=== PATIENT | male | born 1950 | race Caucasian/White ===

== ENCOUNTER 2024-06-13 09:30 | Emergency (ER) | payer MEDICARE ==
[~2024-06-13] VITALS: Ht 177.8 cm; Wt 85.3 kg
[~2024-06-13 09:30] MED LIST: ALBU2.5V2 IH; ASPI-1005 NG; ATOR40TA69 NG; CLOP75TA32 PO; FAMO20TA8 PO; LOSA50TA64 PO; METF-444 PO; METO25TA6 PO; MONT-39 PO; OMEP20CA12 PO; SITA100T12 PO; TAMSULOSIN PO; TICA90TA NG; VITA-328 PO
[2024-06-13 15:48] LABS: PROTHROMBIN TIME 10.8 SEC (9.6-11.6)
[2024-06-13 15:49] LABS: PARTIAL THROMBOPLASTIN TIME 25.8 SEC (26.3-35.5)
[2024-06-13 16:52] VITALS: BP 138/76; PULSE 72; RESP 16; O2SAT 96
== END 2024-06-13 17:16 | disposition home or self-care (01) ==
LOC: EDH 09:30
DX: T82.534A Leakage of infusion catheter, initial encounter (principal); I25.2 Old myocardial infarction; Z79.82 Long term (current) use of aspirin; Z79.84 Long term (current) use of oral hypoglycemic drugs; Z79.899 Other long term (current) drug therapy
CPT/HCPCS: 36415; 85610; 85730